=== PATIENT | female | born 1975 | race African-American/Black ===

== ENCOUNTER 2020-09-21 07:13 | Emergency (ER) | payer OTHER ==
[~2020-09-21] VITALS: Ht 149.9 cm; Wt 68.0 kg
[2020-09-21 07:32] VITALS: BP 149/77
[2020-09-21] MEDS ORDERED: Ketorolac 30mg Inj IV ONE (07:45)
--- NOTE | 2020-09-21 07:46 | Emergency Room Report ---
History of Present Illness General Chief Complaint: Upper Extremity Injury Source: Patient Present Illness HPI Patient presents with increasing left shoulder pain with left arm numbness. In addition to that over the weekend she was having chest pain. Right now the pain in her shoulders rated 9/10. It is aching and radiates both towards her neck and also somewhat to the upper arm. The numbness is intermittent. She is right-handed. She has been working at her desk. There is been no increased activity with her upper arms recently. The chest pain was intermittent. She has a history of gastroparesis and feels it may be related to this problem. She denies any nausea, vomiting or diarrhea. She denies any dyspnea on exertion. She did not take any medication for the pain. She denies any cardiac risk factors. The patient denies exposure to Covid positive contacts. No fevers, chills, sore throat, palpitations, dysuria, shortness of breath, rashes, depression, anxiety, visual changes, dizziness, headache. Last menstruation was normal for her. Allergies: Coded Allergies: PENICILLINS (Verified Allergy, Unknown, 09/21/20) COVID-19 Screening Contact w/high risk pt: No Experienced COVID-19 symptoms?: No COVID-19 Testing performed MATTRESS RENOVATOR: No Patient History Past Medical History: see triage record Social History: Denies: smoking, alcohol use, drug use Social History Narrative medical laboratory manager Last Menstrual Period: sep 03 Now: No Reviewed Nursing Documentation: PMH: Agreed; PSxH: Agreed Nursing Documentation-PMH Past Medical History: No History, Except For Hx Asthma: Yes - lung nodule Hx Gastrointestinal Problems: Yes - gastroparesis Review of Systems All Other Systems: negative except mentioned in HPI Physical Exam Vital Signs Date Time Temp Pulse Resp B/P (MAP) Pulse Ox O2 Delivery O2 Flow Rate FiO2 09/21/20 07:32 98.2 89 16 149/77 (101) 97 Room Air Sp02 EP Interpretation: reviewed, normal General Appearance: well appearing, no apparent distress, GCS 15, other - In pain Head: normocephalic Eyes: bilateral eye normal inspection, bilateral eye PERRL, bilateral eye EOMI ENT: moist mucus membranes Neck: supple Respiratory: chest non-tender, lungs clear, normal breath sounds Cardiovascular #1: regular rate, rhythm Cardiovascular #2: 2+ radial (R), 2+ radial (L) Gastrointestinal: normal inspection, non-distended Genitourinary: no CVA tenderness Musculoskeletal: back normal, gait/station normal, tender - Left shoulder to palpation with decreased range of motion of the left arm Neurologic: alert, distal neuro normal, oriented x3 Psychiatric: mood/affect normal Skin: no rash, warm/dry Medical Decision Making Diagnostic Impression: Primary Impression: Left shoulder pain Qualified Codes: M25.512 - Pain in left shoulder Additional Impressions: Chest pain Qualified Codes: R07.9 - Chest pain, unspecified Calcific tendinitis ER Course Patient presents with left shoulder pain with arm numbness. In addition she was having chest pain throughout the weekend. Differential includes acute myocardial infarction, acute coronary syndrome, bursitis, gastroparesis, gout, tendinitis and reflux amongst others. Patient evaluated with EKG, chest x-ray, left shoulder film and labs. Patient placed on a property assessment monitor. Patient administered Toradol and Tylenol. EKG with normal sinus rhythm and sinus arrhythmia. Nonspecific ST-T wave changes. Chest x-ray normal. Left shoulder with calcific tendinitis. Labs unremarkable Except for pyuria with evidence of contamination. A sling was applied. Patient had relief with this. Distal neurovascular was normal as checked by me. Discussed findings with patient.Discussed treatment plan. No medical emergency at this time. Patient stable for outpatient observation and treatment. Laboratory Tests Test 09/21/20 07:45 09/21/20 07:46 09/21/20 07:54 White Blood Count 6.5 K/UL (4.8-10.8) Red Blood Count 4.74 M/UL (4.20-5.40) Hemoglobin 12.9 G/DL (12.0-16.0) Hematocrit 40.0 % (37.0-47.0) Mean Corpuscular Volume 85 FL (80-99) Mean Corpuscular Hemoglobin 27.2 PG (27.0-31.0) Mean Corpuscular Hemoglobin Concent 32.2 G/DL (32.0-36.0) Red Cell Distribution Width 12.9 % (11.6-14.8) Platelet Count 319 K/UL (150-450) Mean Platelet Volume 7.6 FL (6.5-10.1) Neutrophils (%) (Auto) 67.4 % (45.0-75.0) Lymphocytes (%) (Auto) 26.7 % (20.0-45.0) Monocytes (%) (Auto) 4.1 % (1.0-10.0) Eosinophils (%) (Auto) 0.2 % (0.0-3.0) Basophils (%) (Auto) 1.6 % (0.0-2.0) Urine Color Pale yellow Urine Appearance Slightly cloudy Urine pH 8 (4.5-8.0) Urine Specific Bradford 1.010 (1.005-1.035) Urine Protein Negative (NEGATIVE) Urine Glucose (UA) Negative (NEGATIVE) Urine Ketones Negative (NEGATIVE) Urine Blood Negative (NEGATIVE) Urine Nitrite Negative (NEGATIVE) Urine Bilirubin Negative (NEGATIVE) Urine Urobilinogen Normal MG/DL (0.0-1.0) Urine Leukocyte Esterase 1+ (NEGATIVE) H Urine RBC 0-2 /HPF (0 - 2) Urine WBC 5-10 /HPF (0 - 2) H Urine Squamous Epithelial Cells Many /LPF (NONE/OCC) H Urine Bacteria Few /HPF (NONE) Prothrombin Time 11.1 SEC (9.30-11.50) Prothrombin Time INR 1.0 (0.9-1.1) Activated Partial Thromboplast Time 33 SEC (23-33) Sodium Level 138 MMOL/L (136-145) Potassium Level 3.7 MMOL/L (3.5-5.1) Chloride Level 101 MMOL/L (98-107) Carbon Dioxide Level 29 MMOL/L (21-32) Anion Gap 8 mmol/L (5-15) Blood Urea Nitrogen 6 mg/dL (7-18) L Creatinine 0.8 MG/DL (0.55-1.30) Estimated Glomerular Filtration Rate > 60 mL/min (>60) Glucose Level 99 MG/DL (74-106) Uric Acid 2.3 MG/DL (2.6-7.2) L Calcium Level 9.4 MG/DL (8.5-10.1) Total Bilirubin 0.3 MG/DL (0.2-1.0) Aspartate Amino Transferase (AST) 14 U/L (15-37) L Alanine Aminotransferase (ALT) 12 U/L (12-78) Alkaline Phosphatase 64 U/L (46-116) Total Creatine Kinase 68 U/L (26-308) Troponin I 0.000 ng/mL (0.000-0.056) Total Protein 8.4 G/DL (6.4-8.2) H Albumin 4.2 G/DL (3.4-5.0) Globulin 4.2 g/dL Albumin/Globulin Ratio 1.0 (1.0-2.7) EKG Diagnostic Results Rate: normal Rhythm: NSR ST Segments: no acute changes Rhythm Strip Diag. Results EP Interpretation: yes Rhythm: NSR, no PVC's, no ectopy Chest X-Ray Diagnostic Results Chest X-Ray Diagnostic Results : Chest X-Ray Ordered: Yes # of Views/Limited/Complete: 1 View Indication: Chest Pain EP Interpretation: Yes Interpretation: no consolidation, no effusion, no pneumothorax Impression: No acute disease Electronically Signed by: Electronically signed by Jordan Hernández MD Other X-Ray Diagnostic Results Other X-Ray Diagnostic Results : X-Ray ordered: Left shoulder # of Views/Limited Vs Complete: 3 View Indication: Pain EP Interpretation: Yes Interpretation: no dislocation, no soft tissue swelling, no fractures, other - Calcific tendinitis Impression: Other Electronically Signed by: Electronically signed by Jordan Hernández MD Last Vital Signs Date Time Temp Pulse Resp B/P (MAP) Pulse Ox O2 Delivery O2 Flow Rate FiO2 09/21/20 09:17 Room Air 09/21/20 07:32 98.2 89 16 149/77 (101) 97 Status: improved Disposition: HOME, SELF-CARE Condition: Improved Scripts Acetaminophen With Codeine (T#3) (TYLENOL #3 TAB*) Y Tab 1 TAB ORAL Q8H PRN for For Pain, #10 TAB Prov: Jordan Hernández MD 09/21/20 Famotidine* (Pepcid 20mg tablet*) 20 Mg Tablet 20 MG ORAL DAILY for Gerd, #30 TAB 0 Refills Prov: Jordan Hernández MD 09/21/20 Ibuprofen* (MOTRIN*) 600 Mg Tablet 600 MG ORAL Q6H PRN for FOR PAIN, #20 TAB 0 Refills Prov: Jordan Hernández MD 09/21/20 Jordan Hernández MD Sep 21, 2020 07:46
[2020-09-21 08:15] LABS: APPEARANCE,URINE SLIGHTLY CLOUDY; BILIRUBIN, URINE NEGATIVE (NEGATIVE); COLOR,URINE PALE YELLOW; GLUCOSE, URINE (UA) NEGATIVE (NEGATIVE); KETONES,URINE NEGATIVE (NEGATIVE); LEUKOCYTE ESTERASE ,URINE 1+ (NEGATIVE); NITRITE,URINE NEGATIVE (NEGATIVE); PH,URINE 8 (4.5-8.0); PROTEIN,URINE NEGATIVE (NEGATIVE); UROBILINOGEN,URINE NORMAL MG/DL (0.0-1.0)
[2020-09-21 08:16] LABS: BASOPHILS % (AUTO) 1.6 % (0.0-2.0); EOSINOPHILS % (AUTO) 0.2 % (0.0-3.0); HEMOGLOBIN 12.9 G/DL (12.0-16.0); LYMPHOCYTES % (AUTO) 26.7 % (20.0-45.0); MEAN CORPUSCULAR VOLUME 85 FL (80-99); MONOCYTES % (AUTO) 4.1 % (1.0-10.0); NEUTROPHILS % (AUTO) 67.4 % (45.0-75.0); PLATELET COUNT 319 K/UL (150-450); RED BLOOD COUNT 4.74 M/UL (4.20-5.40); RED CELL DISTRIBUTION WIDTH 12.9 % (11.6-14.8); WHITE BLOOD COUNT 6.5 K/UL (4.8-10.8)
[2020-09-21 08:23] LABS: ANION GAP 8 mmol/L (5-15); BLOOD UREA NITROGEN 6 mg/dL (7-18); CALCIUM 9.4 MG/DL (8.5-10.1); CARBON DIOXIDE 29 MMOL/L (21-32); CHLORIDE 101 MMOL/L (98-107); CREATININE 0.8 MG/DL (0.55-1.30); POTASSIUM 3.7 MMOL/L (3.5-5.1); SODIUM 138 MMOL/L (136-145)
[2020-09-21 08:28] LABS: ALANINE AMINOTRANSFERASE 12 U/L (12-78); ALBUMIN 4.2 G/DL (3.4-5.0); ALKALINE PHOSPHATASE 64 U/L (46-116); ASPARTATE AMINO TRANSFERASE 14 U/L (15-37); BILIRUBIN,TOTAL 0.3 MG/DL (0.2-1.0); CREATINE KINASE 68 U/L (26-308)
--- NOTE | 2020-09-21 08:39 | NUR ---
Patient presents with increasing left shoulder pain with left arm numbness. In addition to that over the weekend she was having chest pain. Right now the pain in her shoulders rated 9/10.
[2020-09-21] MEDS ORDERED: IBUPROFEN600 M1 ORAL (08:58)
[2020-09-21] MEDS ORDERED: FAMOTIDINE20 MG ORAL (08:58)
[2020-09-21] MEDS ORDERED: ACETAMINOPHEN-1 EAC1 ORAL (09:12)
--- NOTE | 2020-09-21 14:52 | Diagnostic Imaging Report ---
Indication: Chest pain Technique: One view of the chest Comparison: none Findings: Lungs and pleural spaces are clear. Heart size is normal. Impression: No acute process
--- NOTE | 2020-09-21 14:52 | Diagnostic Imaging Report ---
Indication: Nontraumatic left shoulder pain Technique: 3 views of the left shoulder Comparison: none Findings: There is calcific tendinosis of the rotator cuff. No acute fractures. No dislocations. Joint spaces are preserved. Impression: No acute process
--- NOTE | 2020-09-23 15:27 | Cardiology Report ---
APPROVED REPORT EKG Measurement Heart [id number] <Conclusion> Normal sinus rhythm with sinus arrhythmia Nonspecific T wave abnormality Abnormal ECG
== END 2020-09-21 09:18 | disposition home or self-care (01) ==
LOC: EMR 07:51
DX: M75.32 Calcific tendinitis of left shoulder (principal); M25.512 Pain in left shoulder; R07.9 Chest pain, unspecified; Z88.0 Allergy status to penicillin
CPT/HCPCS: 36415; 71045; 73030; 80053; 81003; 82550; 84484; 84550; 85025; 85610; 85730; 93005; 96374; 99284; J1885